=== PATIENT | female | born 1980 | race Two or more races ===

== ENCOUNTER 2023-04-25 06:16 | Emergency (ER) | payer OTHER ==
[~2023-04-25] VITALS: Ht 175.3 cm; Wt 81.6 kg
[2023-04-25] MEDS ORDERED: CLONAZEPAM1 MG PO (06:31)
[2023-04-25 09:22] LABS: HEMATOCRIT 46.6 % (36.0-45.00); HEMOGLOBIN 15.8 g/dL (12.0-15.00); MEAN CELL VOLUME 89.6 fL (80.00-100.00); MEAN CORPUSCULAR HEMOGLOBIN 30.3 pg (27.00-32.0); MEAN CORPUSCULAR HGB CONC 33.8 g/dl (32.0-36.0); PLATELET COUNT 307 K/uL (150-450); RED CELL DISTRIBUTION WIDTH 13.6 % (11.5-14.5)
[2023-04-25 09:52] LABS: CALCIUM 9.1 mg/dL (8.5-10.1); CREATININE SERUM 0.7 mg/dL (0.55-1.02); GFR 92.68; POTASSIUM 3.86 mEq/L (3.5-5.1)
[2023-04-25 18:33] LABS: INR 1.02; PARTIAL THROMBOPLASTIN TIME 30.7 SECONDS (22.0-34.0); PROTHROMBIN TIME 10.7 SECONDS (9.0-11.5)
[2023-04-25 18:41] LABS: ALBUMIN 3.6 gm/dL (3.4-5.0); BILIRUBIN TOTAL 0.2 mg/dL (0.3-1.2); CALCIUM 8.5 mg/dL (8.5-10.1); CKMB 1.9 NG/ML (0.5-3.6); CREATININE SERUM 0.89 mg/dL (0.55-1.02); GFR 70.25; GLOBULINA 3.6 G/DL (2.4-3.5); POTASSIUM 3.62 mEq/L (3.5-5.1); TOTAL PROTEIN 7.2 gm/dL (6.4-8.2)
[2023-04-26 02:51] LABS: COCAINE NEGATIVE (NEGATIVE); METHADONE NEGATIVE (NEGATIVE); OPIATES NEGATIVE (NEGATIVE); THC ( Cannabinoids) NEGATIVE (NEGATIVE)
[2023-04-26 05:32] LABS: PH,URINE 6.5 (5.0-8.0); URINE APPEARANCE Cloudy; URINE BILIRRUBIN Negative (NEGATIVE); URINE BLOOD Negative; URINE COLOR Yellow; URINE GLUCOSE Negative (NEGATIVE); URINE LEUKOCYTE Negative; URINE NITRATE Negative; URINE PROTEIN Negative (NEGATIVE)
[2023-04-26 05:35] LABS: URINE BACTERIA 524.1 uL (0.0-1933); URINE EPITHELIAL CELLS 13.9 uL (0.0-38.8); URINE RBC 6.4 uL (0.0-20.8); URINE WBC 7.4 uL (0.0-23.2)
== END 2023-04-25 09:59 | disposition home or self-care (01) ==
LOC: ER 06:16
PROVIDERS: General Practice
DX: F41.8 Other specified anxiety disorders (principal)

== ENCOUNTER 2023-07-17 23:26 | Emergency (ER) | payer OTHER ==
[~2023-07-17] VITALS: Ht 167.6 cm; Wt 72.6 kg
[~2023-07-17 23:26] MED LIST: CLONAZEPAM1 MG PO
[2023-07-17] MEDS ORDERED: SEROQUEL300 MG PO (23:41)
[2023-07-17] MEDS ORDERED: LITHOBID300 M1 (23:42)
[2023-07-18] MEDS ORDERED: LORazepam 1 MG TABLET PO STA (01:36)
[2023-07-18 02:27] LABS: HEMOGLOBIN 14.3 g/dL (12.0-15.00); MEAN CELL VOLUME 87.1 fL (80.00-100.00); MEAN CORPUSCULAR HEMOGLOBIN 28.9 pg (27.00-32.0); MEAN CORPUSCULAR HGB CONC 33.2 g/dl (32.0-36.0); PLATELET COUNT 319 K/uL (150-450); RED BLOOD COUNT 4.94 M/uL (4.00-6.00); RED CELL DISTRIBUTION WIDTH 13.5 % (11.5-14.5)
[2023-07-18 03:12] LABS: ALBUMIN 3.8 gm/dL (3.4-5.0); ALKALINE PHOSPHATASE 102 U/L (50-136); ALT/SGPT 38 U/L (12-78); ANION GAP 9 (10.0-20.0); AST/SGOT 15 U/L (15-37); BILIRUBIN TOTAL 0.23 mg/dL (0.3-1.2); BLOOD UREA NITROGEN 16 mg/dL (7-18); BUN CREA RATIO 16 (7.0-25.0); CALCIUM 9.6 mg/dL (8.5-10.1); CARBON DIOXIDE 28 mEq/L (21-32); CHLORIDE 108 mmol/L (98-107); CREATININE SERUM 0.97 mg/dL (0.55-1.02); GLOBULINA 4.1 G/DL (2.4-3.5); GLUCOSE FASTING 114 mg/dL (65-100); OSMOLALITY SERUM 283 MOSM/KG (275-295); POTASSIUM 3.98 mEq/L (3.5-5.1); SODIUM 141 mmol/L (136-145); TOTAL PROTEIN 7.9 gm/dL (6.4-8.2)
[2023-07-18 03:37] LABS: HCG QUANTITATIVE < 1 mUI/mL (1-3)
[2023-07-18 03:59] LABS: COCAINE NEGATIVE (NEGATIVE); METHADONE NEGATIVE (NEGATIVE); OPIATES NEGATIVE (NEGATIVE); THC ( Cannabinoids) NEGATIVE (NEGATIVE)
[2023-07-18] MEDS ORDERED: LEVSIN/SL0.125 MG SL ×2 (05:37→05:38)
[2023-07-18] MEDS ORDERED: ATIVAN1 M1 PO (05:37)
[2023-07-18] MEDS ORDERED: TRISPEC DMX LI118 ML PO (05:43)
== END 2023-07-18 05:43 ==
LOC: ER 23:27
PROVIDERS: General Practice
DX: R10.84 Generalized abdominal pain (principal); R25.9 Unspecified abnormal involuntary movements; Z86.59 Personal history of other mental and behavioral disorders